=== PATIENT | male | born 1970 | race Caucasian/White ===

== ENCOUNTER 2022-02-15 14:24 | Emergency (ER) | payer SELFPAY ==
[2022-02-15 17:07] LABS: HEMOGLOBIN 14.1 gm/dl (14.0-17.5); RED BLOOD COUNT 4.48 M/UL (4.20-5.50); WHITE BLOOD COUNT 12.8 K/UL (4.5-11.0)
[2022-02-15] MEDS ORDERED: IBUPROFEN800 MG PO (18:15)
[2022-02-15] MEDS ORDERED: CYCLOBENZAPRINE10 MG PO (18:15)
== END 2022-02-15 18:58 | disposition home or self-care (01) ==
LOC: ER1 14:24
PROVIDERS: Preventive Medicine Occupational Medicine
DX: M75.82 Other shoulder lesions, left shoulder (principal); M75.81 Other shoulder lesions, right shoulder; I10 Essential (primary) hypertension; F17.210 Nicotine dependence, cigarettes, uncomplicated; J43.9 Emphysema, unspecified; Z88.0 Allergy status to penicillin
CPT/HCPCS: 71045; 73030; 80053; 81001; 82550; 83874; 83880; 84550; 85025; 85652; 86140; 87086; 99283